=== PATIENT | female | born 1960 | race Caucasian/White ===

== ENCOUNTER 2023-03-13 05:59 | Day surgery (SDC) | payer OTHER, SELFPAY ==
[2023-03-13] VITALS (39 sets, daily range): BP systolic 98–162; BP diastolic 60–97; PULSE 51–72; RESP 12–16; TEMP 36.1–36.8; O2SAT 91–100; BMI 25.2
[2023-03-13] MEDS: LACTATED RINGERS 1000 ML 1,000 ML 100 ML IV (06:45)
[2023-03-13] MEDS: OXYCODONE (CR) 10 MG TAB.ER.12H PO (06:45)
[2023-03-13] MEDS: ACETAMINOPHEN 500 MG TABLET 1000 MG PO ×2 (06:45→17:55)
[2023-03-13] MEDS: SODIUM CHLORIDE 0.9 % (FLUSH) 10 ML SYRINGE IVF (06:45)
[2023-03-13] MEDS: fentaNYL 100 MCG/2 ML inj IVP (07:12)
[2023-03-13] MEDS: MIDAZOLAM HCL 1 MG/ML inj IVP (07:12)
--- NOTE | 2023-03-13 07:12 | SUR.PREOP ---
TIME?OUT:?0711 PT/RN/MDA?VERIFICATION?OF?SURGICAL?SITE,?PROCEDURE,?AND?CONSENT OBTAINED?PRIOR?TO?INVASIVE?PROCEDURE.
--- NOTE | 2023-03-13 07:43 | W.PM.H&PU ---
History & Physical Update History & Physical Update H&P Reviewed and patient assessed: No changes noted
[2023-03-13] MEDS: CEFAZOLIN 2 GM in 0.9 % SODIUM CHLORIDE Mini-bag 100 ML IVPB ×2 (07:47→17:56)
[2023-03-13] MEDS: TRANEXAMIC ACID 100 MG/ML INJ 1000 MG IV (07:48)
--- NOTE | 2023-03-13 08:03 | P.NB_ITS ---
Nerve Block Nerve Block Time Seen by Provider: 07:15 Date Seen: 03/13/23 Type of block requested by surgeon for post-operative analgesia: adductor canal Side: right Time out performed: Yes Verification of patient name: Yes Verification of date of : Yes Site marking: site marked Name of person performing procedure: Ricci Continuous monitoring Was continuous monitoring of O2 sat, B/P, traffic monitor specialist, recorded every 15 minutes?: Yes Procedure Checklist: sterile prep, needles and gloves Ultrasound guided. Images saved: Yes Medications given in 5ml increments after negative aspiration: Ropivicaine %: 0.5 mL: 20 Needle gauge: 20 Decadron (mg): 10 Precedex (mcg): 25 Patient tolerated procedure well: Yes Additional comments: Needle noted adjacent to nerve Block Charges Block Charge (with Pro Fee): Femoral Nerve Use of Ultrasound Machine for Block: Yes- US Guidance/pain block
--- NOTE | 2023-03-13 08:03 | P.NB_ITS ---
Nerve Block Nerve Block Time Seen by Provider: 07:15 Date Seen: 03/13/23 Type of block requested by surgeon for post-operative analgesia: geniculars Side: right Time out performed: Yes Verification of patient name: Yes Verification of date of : Yes Site marking: site marked Name of person performing procedure: Ricci Continuous monitoring Was continuous monitoring of O2 sat, B/P, awake overnight monitor, recorded every 15 minutes?: Yes Procedure Checklist: sterile prep, needles and gloves Medications given in 5ml increments after negative aspiration: Ropivicaine %: 0.5 mL: 9 Needle gauge: 25 Patient tolerated procedure well: Yes Block Charges Block Charge (with Pro Fee): Genicular Nerve Block Use of Ultrasound Machine for Block: No
--- NOTE | 2023-03-13 08:04 | W.ANESCHARGE ---
Anesthesia Charges Start Date/Time Anesthesia Start Date: 03/13/23 Anesthesia Start Time: 07:30 Stop Date/Time Anesthesia Stop Date: 03/13/23 Anesthesia Stop Time: 10:19
--- NOTE | 2023-03-13 09:32 | P.ORPRC_ITS ---
Procedure Note Date of procedure: 03/13/23 Procedure: PREOPERATIVE DIAGNOSIS: 1. Right knee osteoarthritis, primary, severe POSTOPERATIVE DIAGNOSIS: 1. Right knee osteoarthritis, primary, severe PROCEDURE: 1. Right total knee arthroplasty - modifier 22 (40% added time and difficulty for this case due to extensive scar tissue from 2 previous large open procedures from the 1970s with 25 and 35 cm skin scars. Abundant Ethibond suture required removal that was in the surgical field from that repair. Increased adhesions warranted greater dissection, tissue mobilization, and time to achieve safe bone mobility for access for implant insertion. In addition, a stem was utilized on the femoral component with increased constraint for the RP design warranting greater tibial preparation than is typical.) SURGEON: Theo Beatty MD. SKULL CHOPPER: Kush PENALOZA - Of note, a skilled medical laboratory assistant was critical for this case to aid in patient positioning, tissue retraction, limb manipulation/positioning, and closure. ANESTHESIA: Spinal anesthetic IMPLANTS: DePuy J&J all cemented TKA - Attune PS femur size 7 with 50 mm stem, size 6 RP design tibia, 6 mm RP poly spacer, 35 mm patella TOURNIQUET: 110 minutes at 300 torr EBL: 50 ml COMPLICATIONS: None evident INDICATIONS: The patient is a pleasant 62-year-old female who has experienced severe right knee pain and difficulty bearing weight. Workup included x-rays which revealed severe osteoarthrosis in the knee. She has a significant history of multiple previous surgeries to this right knee dating back to the for profound ligament instability. This included a 25 cm scar over the lateral aspect of the knee and a 35 cm scar over the medial aspect of the knee. Given the deformity, the dysfunction, and the pain, as well as the failure of nonoperative management, recommendation was made for surgery. FINDINGS: Extensive scar tissue throughout the knee. Hemosiderin deposition throughout the synovial tissues and exposed articular surface/bony structures making everything appear with a brownish hue. Ethibond sutures aligned the previous retinacular repair. Rosa Isela were seen along the proximal medial tibia and proximal lateral tibia but did not block implant access and therefore did not warrant removal. Allografts were seen for apparent remote MCL, PCL, and ACL reconstructions. The femoral rosa isela were not encountered during our procedure. DESCRIPTION OF PROCEDURE: Following a thorough discussion of risks, benefits, and alternatives consent was obtained and the right knee was marked. The patient was brought to the operating room and placed supine on the operating table. Induction of anesthesia was undertaken. 1 g IV Ancef and 1 g tranexamic acid was administered within 1 hr of incision preoperatively. Proper time-out was performed identifying proper patient, site, procedure. The operative extremity was prepped and draped in the appropriate sterile fashion using ChloraPrep after the patient was positioned supine with all bony prominences well padded. A longitudinal, anterior, midline skin incision was made starting approximately 3cm proximal to the superior pole of the patella and advanced distal to the tibial tubercle. A median parapatellar arthrotomy was created. A medial subperiosteal sleeve was created with knife, castanon elevator and curved osteotome. The retropatellar fatpad was resected and the synovium in the suprapatellar pouch excised to visualize the anterior femoral cortex. Femoral preparation was performed via an intramedullary guide. Step drill allowed access into the femoral canal. The distal cutting guide was placed with 5? of valgus and 11 mm cut on the distal femur due to a 5-7 degree flexion contracture. Femur was sized using a anterior referencing guide in 3? of external rotation. This found have a best fit with the sizing noted above. The 4 in 1 cutting block was then placed, and the distal femur shaped accordingly. The box cut was then created along with preparation for the femoral stem. The trial implant inserted to confirm appropriate fit. We turned our attention to the proximal tibia. Extramedullary guide was utilized for cutting with the goal of being 90 degree cut from the mechanical axis of the tibia in the varus/valgus plane utilizing tibial crest as the primary alignment. Initially a 3 mm resection was performed from the medial tibial plateau. Ultimately, balancing was achieved in both flexion and extension in both varus and valgus. This did require osteophyte excision from the posterior femur, posterior tibia, mobilization of capsule from the posterior medial tibia, posterior medial and lateral femoral condyles, and even within the notch. Pie crusting of the MCL allograft was needed to allow the tibia to translate more anteriorly. The allograft had been secured in the far anterior proximal aspect of the MCL not in its typical anatomic location. This restricted anterior tibial translation until the pie crusting improve this. The knee was able to achieve full extension as well comfortably. The patella was initially measured and found have a thickness of 22 mm. It was resected back to approximately 14 mm. It was sized to be a best fit with as noted above. This was drilled, trial placed. All trials were placed and found to have an excellent stability and balance. At this stage, trial implants were removed, the knee was thoroughly irrigated with normal saline, and the cement was mixed. After irrigation, the knee was thoroughly dried, and cement placed, with the real tibial and femoral implants placed along with the patella. Trial poly spacer was placed and confirmed to have excellent range of motion and full extension, and the real poly spacer opened and inserted. All extra cement was removed, and a 3 min Betadine soak performed. Finally, a final irrigation round with normal saline was performed. Closure performed with 0 Vicryl and #0 Stratafix for the quad tendon/retinaculum. 2-0 Vicryl for the subcutaneous and 4-0 Stratafix for subcuticular closure. Dressings were applied and the patient was awoken from anesthesia after the tourniquet deflated and transferred the PACU in stable condition. A skilled medical laboratory assistant was critical for this case to aid in patient positioning, tissue retraction, bone exposure, limb manipulation/positioning, patient safety, and closure. Again, 40% added time and difficulty for this case due to extensive scar tissue from 2 previous large open procedures from the 1970s with 25 and 35 cm skin scars and associated deep scar tissue. Abundant Ethibond suture required removal that was in the surgical field from that repair. Increased adhesions warranted greater dissection, tissue mobilization, and time to achieve safe bone mobility for access for implant insertion. In addition, a stem was utilized on the femoral component with increased constraint for the RP design warranting greater tibial preparation than is typical. PLAN: 1. Weight bear as tolerated operative extremity. 2. 23 hr perioperative antibiotics. 3. Ice. 4. PT/OT consults for ambulation assistance/mobility education. 5. Social work consult for discharge planning. 6. DVT prophylaxis with at SCDs, Sly Hose, and aspirin twice daily.
--- NOTE | 2023-03-13 10:18 | W.ANESCHARGE ---
Anesthesia Charges Start Date/Time Anesthesia Start Date: 03/13/23 Anesthesia Start Time: 07:30 Stop Date/Time Anesthesia Stop Date: 03/13/23 Anesthesia Stop Time: 10:19
[2023-03-13] MEDS: fentaNYL 100 MCG/2 ML inj 50 MCG IVP ×3 (10:20→11:02)
--- NOTE | 2023-03-13 10:22 | CRLHL7_ITS ---
For Patients: As a result of the Cures Act, medical imaging exams and procedure reports are released immediately into your electronic medical record. You may view this report before your referring provider. If you have questions, please contact your health care provider. Indication: Postop Technique: Two views right knee Findings/Impression: Hardware from a right total knee arthroplasty is in satisfactory position. Bone alignment is normal. No sign of acute fracture. Postop changes are within normal limits. Dictated by Wan Jackson MD @ 03/13/2023 10:42:48 AM (Electronically Signed)
[2023-03-13] MEDS: HYDROmorphone 0.5 mg/0.5 ml inj IVP ×2 (10:40→11:03)
--- NOTE | 2023-03-13 11:39 | SUR.OPER ---
PATIENT QUESTIONS ANSWERED SATISFACTORILY PREOPERATIVELY.? PATIENT BROUGHT TO OR #2 PER CART AFTER ADMINISTRATION OF A BLOCK.? Patient positioned supine on OR #2 bed.? The perioperative?team supported arms bilaterally on arm boards.? Final approval of positioning by surgeon.?
[2023-03-13] MEDS: ONDANSETRON 2 MG/ML inj 4 MG IVP (13:20)
[2023-03-13] MEDS: PROCHLORPERAZINE 5 MG/ML VIAL IV (17:22)
[2023-03-13] MEDS: LACTATED RINGERS 1000 ML 1,000 ML 75 ML IV (18:05)
[2023-03-13] MEDS: SENNOSIDES 1 TAB TABLET 2 TAB PO (21:42)
[2023-03-13] MEDS: ASPIRIN 81 MG TABLET EC PO (21:42)
--- NOTE | 2023-03-13 22:46 | PC.NURSE ---
VSS, RA. Minimal pain- only wanting tylenol right now, cryo cuff on. Tried to encourage ibuprofen, declined. Nausea at beginning of shift, emesis x2, compazine given x1 w/ relief. Decreased appetite- bites of food. Needs encouragement w/ drinking. CMS intact on RLE. Dressing c/d/i. PIV in left FA- LR @ 75 cc/hr. Up to bathroom x2. Will continue to monitor, follow POC, and keep pt and family updated. Renetta Alvarez RN
[2023-03-14 00:30] VITALS: BP 110/59; PULSE 74; RESP 16; TEMP 36.7; O2SAT 98
[2023-03-14] MEDS: ACETAMINOPHEN 500 MG TABLET 1000 MG PO ×2 (00:32→06:18)
[2023-03-14] MEDS: CEFAZOLIN 2 GM in 0.9 % SODIUM CHLORIDE Mini-bag 100 ML IVPB (02:25)
[2023-03-14 03:00] VITALS: BP 96/50; PULSE 76; RESP 16; TEMP 37.3; O2SAT 97
[2023-03-14 06:00] VITALS: BP 101/69
--- NOTE | 2023-03-14 06:22 | PC.NURSE ---
SHIFT NOTE : Pt pleasant and cooperative, A&O. Afebrile, oxygen saturations >90% on RA. Denies SOB, CP and N/V. Scheduled Tylenol given for pain 06/12, denied need for PRN oxycodone. Up SBA with a walker, ambulates well, denies dizziness or lightheadedness.
[2023-03-14 06:39] LABS: Basophils Percent Auto 0.1 % (0.0-3.0); Hemoglobin* 11.4 gm/dL (12.0-16.0); Immature Granulocytes Pct Auto 0.2 %; Lymphocytes Percent Auto 9.6 % (20-44); Mean Corpuscular HGB Conc 33 gm/dL (32-36); Mean Corpuscular Hemoglobin 29 pg (26-34); Mean Corpuscular Volume 88 fL (80-100); Monocytes Percent Auto 9.5 % (0.0-11.0); Neutrophils Percent Auto 80.6 % (42.0-72.0); Platelet Count* 296 K/uL (140-440); RDW Coefficient of Variation % 14.3 % (11.5-15.5); White Blood Count* 13.27 K/uL (4.50-11.00)
[2023-03-14 06:42] LABS: Slide Review Reflex No
[2023-03-14 07:04] LABS: Sodium* 138 mmol/L (135-149)
[2023-03-14 07:07] LABS: Creatinine* 0.5 mg/dL (0.5-1.5); Est. Creatinine Clearance* 58.84; Estimated Glomerular Filt Rate 106 ml/min
[2023-03-14 07:08] LABS: Blood Urea Nitrogen* 10 mg/dL (7-30)
[2023-03-14 08:20] VITALS: BP 93/54; PULSE 71; RESP 16; TEMP 37.1; O2SAT 96
--- NOTE | 2023-03-14 08:57 | PM.ORPN ---
Subjective Subjective Date Seen: 03/14/23 Principal diagnosis: Status postop day 1 right total knee arthroplasty Interval history: Patient reports doing well. No acute events over night. No longer experiencing nausea. No pain. Still taking Tylenol p.r.n.. No oxycodone. Ice p.r.n. DVT prophylaxis: 81 mg aspirin by mouth twice daily, bilateral knee high Sly stockings, SCDs, walking. Denies fevers, chills, aches, N/V, CP, SOB/ALANIZ, or lightheadedness. No flatus to date. Stomach is rolling/gurgling. Ortho Exam Narrative Exam Narrative: -Patient appears comfortable; no apparent acute distress -Alert and oriented times 3 -Operative knee mildly swollen; soft tissues supple; no ecchymosis; no erythematous streaking Warmth appropriate -Surgical dressing clean, dry, intact; no drainage -Bilateral calfs soft; no significant swelling, edema, tenderness, erythema, discoloration, warmth, or palpable cords -2+ DP/PT pulses, intact dermatomes and myotomes distally (5/5 strength) Const Vital Signs, click to edit/add: Vital Signs - 24 hr 03/13/23 10:15 03/13/23 10:20 03/13/23 10:25 Temperature 96.9 F L Pulse Rate 60 53 L 53 L Pulse Rate [Left Pulse Oximeter] Respiratory Rate 12 12 15 Blood Pressure 112/60 110/68 104/68 Blood Pressure [Right Arm] Pulse Oximetry 91 96 95 Oxygen Delivery Method Room Air 03/13/23 10:30 03/13/23 10:35 03/13/23 10:40 Temperature Pulse Rate 51 L 56 L 60 Pulse Rate [Left Pulse Oximeter] Respiratory Rate 12 14 14 Blood Pressure 101/69 103/66 108/73 Blood Pressure [Right Arm] Pulse Oximetry 97 96 96 Oxygen Delivery Method 03/13/23 10:45 03/13/23 10:50 03/13/23 10:55 Temperature 97.3 F L Pulse Rate 60 56 L 59 L Pulse Rate [Left Pulse Oximeter] Respiratory Rate 12 14 14 Blood Pressure 106/66 105/70 108/75 Blood Pressure [Right Arm] Pulse Oximetry 94 97 99 Oxygen Delivery Method Room Air 03/13/23 11:00 03/13/23 11:05 03/13/23 11:10 Temperature Pulse Rate 60 68 67 Pulse Rate [Left Pulse Oximeter] Respiratory Rate 14 12 12 Blood Pressure 106/74 103/68 110/64 Blood Pressure [Right Arm] Pulse Oximetry 100 99 98 Oxygen Delivery Method 03/13/23 11:15 03/13/23 11:20 03/13/23 11:25 Temperature 97.8 F 97.0 F L Pulse Rate 65 61 58 L Pulse Rate [Left Pulse Oximeter] Respiratory Rate 14 14 16 Blood Pressure 115/70 115/68 120/70 Blood Pressure [Right Arm] Pulse Oximetry 98 99 100 Oxygen Delivery Method Room Air Room Air 03/13/23 11:45 03/13/23 12:00 03/13/23 12:15 Temperature Pulse Rate 66 61 66 Pulse Rate [Left Pulse Oximeter] Respiratory Rate 16 16 16 Blood Pressure 122/79 119/78 126/80 Blood Pressure [Right Arm] Pulse Oximetry 100 99 100 Oxygen Delivery Method Room Air Room Air Room Air 03/13/23 12:30 03/13/23 13:00 03/13/23 14:00 Temperature 97.6 F 98.1 F Pulse Rate 54 L 71 55 L Pulse Rate [Left Pulse Oximeter] Respiratory Rate 16 16 14 Blood Pressure 134/74 128/71 Blood Pressure [Right Arm] 125/70 Pulse Oximetry 99 98 Oxygen Delivery Method Room Air Room Air Room Air 03/13/23 14:15 03/13/23 14:30 03/13/23 14:45 Temperature 98.1 F 97.6 F 97.7 F Pulse Rate Pulse Rate [Left Pulse Oximeter] 56 L 60 61 Respiratory Rate 14 14 14 Blood Pressure Blood Pressure [Right Arm] 120/80 130/71 122/72 Pulse Oximetry 100 100 98 Oxygen Delivery Method Room Air Room Air Room Air 03/13/23 15:00 03/13/23 15:30 03/13/23 16:00 Temperature 98.1 F 98.1 F 98.0 F Pulse Rate Pulse Rate [Left Pulse Oximeter] 64 63 62 Respiratory Rate 14 14 14 Blood Pressure Blood Pressure [Right Arm] 121/72 114/68 120/71 Pulse Oximetry 99 98 98 Oxygen Delivery Method Room Air Room Air Room Air 03/13/23 16:55 03/13/23 17:00 03/13/23 18:00 Temperature 97.6 F 98.1 F 98.1 F Pulse Rate Pulse Rate [Left Pulse Oximeter] 72 62 63 Respiratory Rate 14 14 14 Blood Pressure Blood Pressure [Right Arm] 122/72 162/97 H 106/69 Pulse Oximetry 98 99 97 Oxygen Delivery Method Room Air Room Air Room Air 03/13/23 19:00 03/13/23 19:08 03/13/23 20:00 Temperature 98.1 F 98.2 F Pulse Rate Pulse Rate [Left Pulse Oximeter] 62 68 62 Respiratory Rate 16 14 16 Blood Pressure Blood Pressure [Right Arm] 109/62 106/69 116/65 Pulse Oximetry 97 Oxygen Delivery Method Room Air Room Air 03/13/23 23:00 03/14/23 00:30 03/14/23 03:00 Temperature 98.1 F 99.1 F Pulse Rate Pulse Rate [Left Pulse Oximeter] 74 76 Respiratory Rate 16 16 Blood Pressure Blood Pressure [Right Arm] 110/59 L 96/50 L Pulse Oximetry 98 98 97 Oxygen Delivery Method Room Air Room Air 03/14/23 06:00 03/14/23 08:20 03/14/23 08:20 Temperature 98.8 F Pulse Rate Pulse Rate [Left Pulse Oximeter] 71 Respiratory Rate 16 Blood Pressure Blood Pressure [Right Arm] 101/69 93/54 L Pulse Oximetry 96 96 Oxygen Delivery Method Room Air Assessment and Plan Assessment and plan (1) S/P total knee arthroplasty: Problem details: POD 1 right total knee arthroplasty - cemented (03/13/2023) Status: Acute (2) Acute postoperative anemia due to expected blood loss: Problem details: Hemoglobin 11.4, asymptomatic Status: Acute Plan - Complete 23 hour perioperative antibiotics. - PT/OT consult for education and assistance. - Social work consult for discharge planning - Prescribed analgesics as needed - DVT prophylaxis: 81 mg aspirin by mouth twice daily, bilateral knee high Sly Hose stockings and SCDs - Anticipation is for discharge to home with spouse today 03/14/2023 if the patient remains medically stable, pain is controlled, and they are safe with mobilization. I note her history of ischemic colitis. No flat this today, but she has abdominal motion/gurgling. She will report to us if having no flatus or BM.
[2023-03-14] MEDS: MULTIVITAMIN/MINERALS 1 TABLET 1 TAB PO (09:03)
[2023-03-14] MEDS: ASPIRIN 81 MG TABLET EC PO (09:03)
[2023-03-14] MEDS: FERROUS SULFATE 325 MG TABLET PO (09:03)
[2023-03-14] MEDS: SENNOSIDES 1 TAB TABLET 2 TAB PO (09:04)
== END 2023-03-14 11:14 | disposition home or self-care (01) ==
LOC: OR 13:40 → MEDSURG 17:19
PROVIDERS: PCP Family Medicine; Visit Provider Orthopaedic Surgery Sports Medicine
PROC: (CPT 27447; principal; 2023-03-13 07:30)
DX: M17.11 Unilateral primary osteoarthritis, right knee (principal); D62 Acute posthemorrhagic anemia; G89.18 Other acute postprocedural pain
CPT/HCPCS: 27447; 01402; 36415; 64447; 64454; 73560; 76942; 82565; 84132; 84295; 84520; 85025; 97110; 97116; 97162; 97165; 97530; 97535; A9153; A9270; C1776; J0690; J0780; J1100; J1170; J2250; J2405; J2704; J2795; J3010; J7120

== ENCOUNTER 2023-05-23 17:00 | Outpatient (RCR) | payer OTHER, SELFPAY | END 2023-07-30 10:09 | disposition home or self-care (01) | PROVIDERS: PCP Family Medicine; Visit Provider Orthopaedic Surgery Sports Medicine | DX: M17.11 Unilateral primary osteoarthritis, right knee (principal); Z96.651 Presence of right artificial knee joint; R53.1 Weakness; Z74.09 Other reduced mobility; M25.561 Pain in right knee; Z51.89 Encounter for other specified aftercare | CPT/HCPCS: 97110; 97112; 97140; 97161; 97164 ==

== ENCOUNTER 2023-08-15 16:43 | Inpatient (IN) | payer OTHER, SELFPAY ==
[2023-08-14] VITALS (34 sets, daily range): BP systolic 69–138; BP diastolic 43–78; PULSE 46–80; RESP 12–19; TEMP 36.1–37.1; O2SAT 92–100; BMI 25.5
[2023-08-14] MEDS: LACTATED RINGERS 1000 ML 1,000 ML 100 ML IV ×3 (06:30→12:55)
[2023-08-14] MEDS: SODIUM CHLORIDE 0.9 % (FLUSH) 10 ML SYRINGE IVF (06:30)
[2023-08-14] MEDS: ACETAMINOPHEN 500 MG TABLET 1000 MG PO ×3 (06:35→22:50)
--- NOTE | 2023-08-14 07:11 | W.PM.H&PU ---
History & Physical Update History & Physical Update H&P Reviewed and patient assessed: No changes noted
[2023-08-14] MEDS: MIDAZOLAM HCL 1 MG/ML inj IVP (07:12)
[2023-08-14] MEDS: fentaNYL 100 MCG/2 ML inj IVP (07:12)
[2023-08-14] MEDS: SCOPOLAMINE 1 MG/3 DAY PATCH 1 PATCH TRANSDERMA (07:12)
--- NOTE | 2023-08-14 07:15 | XR_ITS ---
Patient: KANDICE LARA Facility:?[facility] Patient ID:?[id number] Site Patient ID:?[id number] Site :?[id number] Study:?XRay-Hip Left 1V-08/14/2023 9:49:20 AM Ordering Physician:?DR. WHITLEY Final Report: Indication: Hip replacement surgery Technique: AP hip fluoroscopic image. Fluoroscopy time 64.5 seconds. Findings/Impression: Hardware from a left total hip arthroplasty is in satisfactory position. Dictated by Wan Jackson MD @ 08/14/2023 9:58:56 AM Signed by:?Wan Jackson MD @08/14/2023 9:58:56 AM (Electronic Signature)
--- NOTE | 2023-08-14 07:32 | SUR.PREOP ---
TIME?OUT:?711 PT/RN/MDA?VERIFICATION?OF?SURGICAL?SITE,?PROCEDURE,?AND?CONSENT OBTAINED?PRIOR?TO?INVASIVE?PROCEDURE.
[2023-08-14] MEDS: CEFAZOLIN 2 GM in 0.9 % SODIUM CHLORIDE Mini-bag 100 ML IVPB ×3 (07:43→22:51)
[2023-08-14] MEDS: TRANEXAMIC ACID 100 MG/ML INJ 1000 MG IV (07:44)
--- NOTE | 2023-08-14 07:59 | W.PM.NB ---
Nerve Block Nerve Block Time Seen by Provider: 07:15 Date Seen: 08/14/23 Type of block requested by surgeon for post-operative analgesia: AMAIRANI/LFCN Side: left Time out performed: Yes Verification of patient name: Yes Verification of date of : Yes Site marking: site marked Name of person performing procedure: Ricci Continuous monitoring Was continuous monitoring of O2 sat, B/P, surveillance monitor, recorded every 15 minutes?: Yes Procedure Checklist: sterile prep, needles and gloves Ultrasound guided. Images saved: Yes Medications given in 5ml increments after negative aspiration: Ropivicaine %: 0.5 mL: 30 Needle gauge: 20 Decadron (mg): 10 Precedex (mcg): 25 Patient tolerated procedure well: Yes Additional comments: Needle noted below psoas tendon needle noted adjacent to LFCN Block Charges Block Charge (with Pro Fee): Other Periph Nerve Block Use of Ultrasound Machine for Block: Yes- US Guidance/pain block
--- NOTE | 2023-08-14 08:00 | W.ANESCHARGE ---
Anesthesia Charges Start Date/Time Anesthesia Start Date: 08/14/23 Anesthesia Start Time: 07:20 Stop Date/Time Anesthesia Stop Date: 08/14/23 Anesthesia Stop Time: 10:15
--- NOTE | 2023-08-14 09:38 | PM.ORPRC ---
Procedure Note Date of procedure: 08/14/23 Procedure: PREOPERATIVE DIAGNOSIS: 1. Left hip osteoarthritis, severe, primary POSTOPERATIVE DIAGNOSIS: 1. Left hip osteoarthritis, severe, primary PROCEDURE: 1. Left total hip arthroplasty-anterior approach 2. 51520 - intraoperative fluoroscopy up to 1 hour. SURGEON: Theo Beatty MD. ADJUNCT PROFESSOR OF ENGLISH: Harmony Jackson PA-C; CA Watson - Of note, a skilled special education teaching assistant was critical for this case to aid in patient positioning, tissue retraction, limb manipulation/positioning, dislocation/relocation, patient safety, and closure. ANESTHESIA: Spinal anesthetic EBL: 750 mL IMPLANTS: DePuy J&J uncemented total hip [place] cup size 52, hole eliminator, +0 neutral liner Actis stem, high offset, size 7 +8 mm ceramic 36 mm head. COMPLICATIONS: None evident INDICATIONS: The patient is a pleasant 62-year-old female who has experienced severe left hip pain and difficulty bearing weight. Workup included x-rays which revealed severe osteoarthrosis in the hip. Given the deformity, the dysfunction, and the pain, as well as the failure of nonoperative management, recommendation was made for surgery. FINDINGS: Full-thickness chondral loss diffusely throughout the femoral head as well as around the acetabulum. Large osteophytes especially around the anterior and lateral acetabulum and femoral head/neck junction. Moderate effusion upon entering the joint. We encountered significant continuous oozing/bleeding from the acetabulum upon reaming. This was where a majority of the EBL came from. DESCRIPTION OF PROCEDURE: Following a thorough discussion of risks, benefits, and alternatives consent was obtained and the left hip was marked. The patient was brought to the operating room and placed supine on the operating table. Induction of anesthesia was undertaken. 1 g IV Ancef and 1 g tranexamic acid was administered within 1 hr of incision preoperatively. Proper time-out was performed identifying proper patient, site, procedure. The operative extremity was prepped and draped in the appropriate sterile fashion using ChloraPrep after the patient was positioned on the [place] table with head in neutral alignment and all bony prominences well padded. C-arm fluoroscopic imaging was utilized to confirm proper pelvis rotation and position, and to get true AP films of both the contralateral left, and the affected left hip. This is for comparison. A longitudinal incision was made starting approximately 1 cm distal to the ASIS, and 3-4 cm lateral. The incision was extended distally aiming toward the lateral border the patella. Sharp incision through skin and bovie cautery through the subcutaneous tissue allowed identification of the TFL fascia. This was sharply divided, and the fascia bluntly released from the muscle fibers as we dissected medial. Upon coming to the medial border, we were able to retract the TFL laterally, and penetrated the deeper fascia and identify the crossing circumflex vessels. These were ligated/cauterized. The rectus was elevated from the capsule, and retractors placed laterally and medially along the femoral neck to help with visualization of the capsule. We then performed an inverted T capsulotomy. The capsule was tagged for later repair. Retractors were placed inside the capsule. The femoral neck was visualized after releasing medially down to the lesser trochanter, along the saddle laterally, and up onto the acetabulum. The femoral neck cut was made in line with our preoperative templating. The head was removed in a single piece, and sized. We turned our attention to acetabular preparation. Initially, the labrum was resected from around the perimeter, the pulvinar was excised, allowing us to visualize the false wall. We started the reaming with a 43 mm reamer. This was medialized down to the true wall. We then enlarged our reamers sequentially up to one size less than the selected cup size. We trialed at the same size and found it to have an excellent fit. The selected cup was then opened, inserted, and impacted in line with the goal of 40-45? of abduction, and 20-25? of anteversion. This was confirmed on C-arm fluoroscopic imaging to be in the appropriate/goal position. Once the cup was placed we placed a hole eliminator and a liner consistent with preop planning. In addition, anterior and lateral osteophytes were resected with a combination of osteotome and rongeur. Attention was turned to the femoral preparation. The limb was extended, externally rotated, and adducted. The posteromedial capsule was released, as retractors were placed allowing excellent access to the proximal femur. Initially a spreader box operator was followed by canal finder followed by various broaches. We broached sequentially up to size noted above, found it to have excellent rotational control, and trialing various heads and necks, revealed that appropriate neck offset, and the above noted head size provided the greatest stability, and nondenominational of length, and offset. C-arm fluoroscopic imaging confirmed position of the stem, as well as leg lengths, which were compared with the pre procedure all fluoroscopic images. Trial implants were removed, the real femoral stem inserted, as was the ceramic head. After reducing, the leg was placed through range of motion and stability was confirmed anterior, posterior, and lateral. A 3 min Betadine soak was then performed, and thorough irrigation with normal saline followed. Closure of the capsule was performed with #1 PDS. Bleeding was confirmed to be controlled at this stage, and the TFL fascia was closed with #0 strata fix. Subcutaneous, and subcuticular closure was performed with 2-0 Vicryl and 4-0 Monocryl, respectively. Dressings were applied, and the patient was awoken from anesthesia and transferred the PACU in stable condition. A skilled special education teaching assistant was critical for this case to aid in patient positioning, tissue retraction, proximal femur exposure, limb manipulation/positioning, dislocation/relocation, patient safety, and closure. PLAN: 1. Weight bear as tolerated operative extremity. 2. 23 hr perioperative antibiotics. 3. Ice. 4. PT/OT consults for ambulation assistance/mobility education. 5. Social work consult for discharge planning. 6. DVT prophylaxis with at SCDs, Sly Hose, and Xarelto x5 days followed by aspirin for a total of 1 month..
--- NOTE | 2023-08-14 10:03 | W.ANESCHARGE ---
Anesthesia Charges Start Date/Time Anesthesia Start Date: 08/14/23 Anesthesia Start Time: 07:20 Stop Date/Time Anesthesia Stop Date: 08/14/23 Anesthesia Stop Time: 10:15
--- NOTE | 2023-08-14 10:13 | XR_ITS ---
Patient: KANDICE LARA Facility:?[facility] Patient ID:?[id number] Site Patient ID:?[id number]. Site :?[id number] Study:?XRay-Hip Left 2V-08/14/2023 10:36:25 AM Ordering Physician:?DR. WHITLEY Final Report: Indication: Coccyx pain, fall x1 year Technique: AP hip centered pelvis and lateral view left hip Findings/Impression: Hardware from a left total hip arthroplasty is in satisfactory position. Bone alignment is normal. No sign of acute fracture. Postop changes are within normal limits. Dictated by Wan Jackson MD @ 08/14/2023 11:06:52 AM Signed by:?Wan Jackson MD @08/14/2023 11:06:52 AM (Electronic Signature)
[2023-08-14] MEDS: PHENYLEPHRINE 100 MCG/ML SYRINGE IVP (10:43)
[2023-08-14] MEDS: fentaNYL 100 MCG/2 ML inj 50 MCG IVP (10:46)
--- NOTE | 2023-08-14 11:50 | SUR.PHASEI ---
patient met discharge criteria per anesthesia
[2023-08-14] MEDS: ACETAMINOPHEN 325 MG TABLET PO (12:32)
[2023-08-14] MEDS: LACTATED RINGERS 1000 ML 1,000 ML 35 ML IV (12:55)
--- NOTE | 2023-08-14 13:23 | SUR.PHASEII ---
Pt returned to [facility] with soft BP's, see charting. pt reported dizziness with pressures. pt laid flat, 3rd bag of fluids running. denies nausea, tolerated toast. scope patch behind left ear. 750cc EBL in surgery. Dr. Beatty consulted and agreed for patient to be admitted to med/surg. Report given to BESS Lassiter on med surg at 1315.
[2023-08-14] MEDS: hydrOXYzine pamoate 25 MG CAPSULE PO ×3 (15:00→22:51)
--- NOTE | 2023-08-14 16:57 | P.IMCN_ITS ---
Date of Consult Consult date: 08/14/23 Requesting Physician: Orthopedics Primary Care Provider: Adriana Hayes MD Consult Narrative Reason for consult: Medical management of comorbidities Narrative: Pattie Guzman is a 62 year old female who presented to the hospital today for an elective L EUSEBIA. There were no surgical or anesthetic complications noted during procedure, although EBL estimated at 750mL. Postoperatively, she has had symptomatic hypotension with activity. Her blood pressure is low at baseline. She has no chest pain or palpitations and no other concerns for the hospitalist team; she is very happy to not be nauseated postoperatively. Gayle doesn't tolerate narcotics well, at this time feels that her pain is adequately controlled with APAP + Hydroxyzine. Patient's H&P reviewed, PCP is Dr. Hayes. Past medical history significant for: ischemic colitis, multiple orthopedic procedures, OA History of blood clots: No Postoperative plan: Home with family Review of Systems Status of ROS: Reports: 10 or more systems reviewed and unremarkable except as noted in History and below PFSH PFS Medical History (Updated 04/23/23 @ 14:28 by Jenny Zhao) Ischemic colitis ?K55.9 - Vascular disorder of intestine, unspecified (ICD-10) Ascending aorta dilation ?I77.810 - Thoracic aortic ectasia (ICD-10) Surgical History (Updated 08/14/23 @ 17:05 by Monica Patel MD) History of left hip replacement ?Z96.642 - Presence of left artificial hip joint (ICD-10) S/P total knee arthroplasty (03/13/23) ?Z96.659 - Presence of unspecified artificial knee joint (ICD-10) History of breast surgery ?Z98.890 - Other specified postprocedural states (ICD-10) Hx of tonsillectomy ?Z90.89 - Acquired absence of other organs (ICD-10) Tubal ligation status ?Z98.51 - Tubal ligation status (ICD-10) H/O right knee surgery ?Z98.890 - Other specified postprocedural states (ICD-10) History of bunionectomy ?Z98.890 - Other specified postprocedural states (ICD-10) Family History (Updated 02/01/23 @ 09:50 by Esther Roberts ~ [facility], [employer]) Father DVT (deep venous thrombosis) Social History Narrative: -Serafin Smoking Status: Never smoker Do you use any of these nicotine containing products: None Second hand tobacco smoke exposure: No How often do you have a drink containing alcohol: never How often do you have six or more drinks on one occasion: Never AUDIT-C Alcohol total score: 0 Non-prescribed substance use: denies use Caffeine: Yes (3c/day) Are you using contraception or practicing any form of control: No Meds Home Medications and Allergies Home Medications Medication Instructions Recorded Confirmed Type glucosamine-chondroitin 500 mg-400 1 cap PO TID 03/11/23 08/14/23 History mg capsule multivitamin 1 tab PO DAILY 03/11/23 08/14/23 History turmeric 400 mg capsule mg PO 07/04/23 07/04/23 History Allergies Allergy/AdvReac Type Severity Reaction Status Date / Time Penicillins Allergy Rash Verified 08/14/23 06:22 Sulfa (Sulfonamide Allergy Rash Verified 08/14/23 06:22 Antibiotics) Exam Narrative: Exam Narrative: GEN: Alert and oriented, sitting comfortably in bed HEENT: EOMIs bilaterally, no scleral icterus CV: RRR, No concerning murmurs R: LCTA bilaterally without concerning wheezing, air movement is adequate Ext: wearing Sly Hose bilaterally Skin: No concerning skin lesions or rashes on exposed skin Neuro: No focal deficits Psych: Appropriate Const: Vital Signs, click to edit/add: Vital Signs - 24 hr 08/14/23 06:30 08/14/23 07:12 08/14/23 10:10 Temperature 98.7 F 97 F L Pulse Rate 80 74 68 Respiratory Rate 16 16 19 Blood Pressure 124/71 138/78 80/49 L Pulse Oximetry 98 99 99 Oxygen Delivery Me thod Room Air Nasal Cannula Room Air Oxygen Flow Rate 2 08/14/23 10:15 08/14/23 10:20 08/14/23 10:25 Temperature 97 F L 97 F L 97 F L Pulse Rate 59 L 49 L 50 L Respiratory Rate 14 14 19 Blood Pressure 69/43 L 105/69 88/50 L Pulse Oximetry 99 99 97 Oxygen Delivery Me thod Room Air Room Air Oxygen Flow Rate 08/14/23 10:30 08/14/23 10:35 08/14/23 10:40 Temperature 97 F L 97 F L 97 F L Pulse Rate 47 L 48 L 46 L Respiratory Rate 15 14 14 Blood Pressure 73/57 L 78/45 L 81/44 L Pulse Oximetry 95 100 93 Oxygen Delivery Me thod Room Air Room Air Room Air Oxygen Flow Rate 08/14/23 10:45 08/14/23 10:50 08/14/23 10:55 Temperature 97 F L 97 F L 97 F L Pulse Rate 49 L 49 L 50 L Respiratory Rate 14 12 12 Blood Pressure 99/57 L 86/47 L 80/48 L Pulse Oximetry 95 93 92 Oxygen Delivery Me thod Room Air Room Air Room Air Oxygen Flow Rate 08/14/23 11:00 08/14/23 11:05 08/14/23 11:10 Temperature 97 F L 97 F L 97 F L Pulse Rate 52 L 50 L 49 L Respiratory Rate 16 12 12 Blood Pressure 85/48 L 82/48 L 86/52 L Pulse Oximetry 95 99 100 Oxygen Delivery Me thod Room Air Room Air Room Air Oxygen Flow Rate 08/14/23 11:15 08/14/23 11:20 08/14/23 11:25 Temperature 97 F L 97 F L 97 F L Pulse Rate 49 L 50 L 51 L Respiratory Rate 12 15 14 Blood Pressure 85/53 L 87/54 L 89/52 L Pulse Oximetry 100 100 100 Oxygen Delivery Me thod Room Air Room Air Room Air Oxygen Flow Rate 08/14/23 11:30 08/14/23 11:35 08/14/23 11:40 Temperature 97 F L 97.2 F L 97.2 F L Pulse Rate 56 L 53 L 55 L Respiratory Rate 18 12 16 Blood Pressure 95/54 L 86/56 L 96/55 L Pulse Oximetry 100 100 100 Oxygen Delivery Me thod Room Air Room Air Room Air Oxygen Flow Rate 08/14/23 11:45 08/14/23 12:00 08/14/23 12:15 Temperature 97.6 F Pulse Rate 52 L 58 L 53 L Respiratory Rate 16 16 16 Blood Pressure 92/60 95/55 L 98/55 L Pulse Oximetry 100 100 100 Oxygen Delivery Me thod Room Air Room Air Room Air Oxygen Flow Rate 08/14/23 12:30 08/14/23 13:00 08/14/23 13:30 Temperature Pulse Rate 55 L 54 L 58 L Respiratory Rate 16 16 16 Blood Pressure 93/53 L 98/62 101/56 L Pulse Oximetry 100 100 99 Oxygen Delivery Me thod Room Air Room Air Room Air Oxygen Flow Rate 08/14/23 14:00 08/14/23 14:15 08/14/23 14:50 Temperature 97.0 F L Pulse Rate 72 71 64 Respiratory Rate 15 Blood Pressure 111/63 102/63 100/58 L Pulse Oximetry 100 99 99 Oxygen Delivery Me thod Room Air Room Air Room Air Oxygen Flow Rate 08/14/23 15:05 Temperature Pulse Rate 68 Respiratory Rate Blood Pressure Pulse Oximetry 98 Oxygen Delivery Me thod Room Air Oxygen Flow Rate Assessment and Plan Assessment and plan (1) History of left hip replacement: Problem comment: - 08/14/23Rogerio Status: Acute Plan - pain management and prophylaxis per orthopedic surgery team - continue home medications for comorbidities - anticipate routine postoperative course
--- NOTE | 2023-08-14 18:50 | PC.NURSE ---
End of shift [id number]: Patient was hypotensive upon assessment. Not symptomatic while lying down, initially when PT tried to get her up she got dizzy and lightheaded. Her BP dropped into the 80/50's. Later this evening orthostatic BPs were completed and they were negative and she was no longer symptomatic. The patient reported mild pain in her L hip... scheduled tylenol was given. IV LR @ 75 hr. Tolerating PO intake with no N/V. Call light within reach. Dressing is CDI to L hip. Ice pack to L hip. Esha KELLOGG BSN
[2023-08-14] MEDS: SENNOSIDES 1 TAB TABLET 2 TAB PO (22:51)
[2023-08-15] VITALS (12 sets, daily range): BP systolic 83–108; BP diastolic 42–64; PULSE 58–85; RESP 16–18; TEMP 36.7–37.7; O2SAT 95–100
[2023-08-15] MEDS: hydrOXYzine pamoate 25 MG CAPSULE PO ×3 (04:41→19:47)
[2023-08-15] MEDS: LACTATED RINGERS 500 ML 500 ML IV (04:45)
[2023-08-15 05:03] LABS: Basophils Absolute Auto 0.01 K/uL (0.00-0.30); Basophils Percent Auto 0.1 % (0.0-3.0); Hematocrit 25.4 % (33.0-51.0); Hemoglobin* 8.4 gm/dL (12.0-16.0); Immature Granulocytes Abs Auto 0.01 K/uL (0.00-0.30); Immature Granulocytes Pct Auto 0.1 %; Lymphocytes Percent Auto 14.1 % (20-44); Mean Corpuscular HGB Conc 33 gm/dL (32-36); Mean Corpuscular Hemoglobin 29 pg (26-34); Mean Corpuscular Volume 86 fL (80-100); Neutrophils Percent Auto 77.7 % (42.0-72.0); Platelet Count* 250 K/uL (140-440); RDW Coefficient of Variation % 15.1 % (11.5-15.5); Red Blood Count 2.94 m/uL (4.00-5.20); White Blood Count* 10.34 K/uL (4.50-11.00)
[2023-08-15 05:07] LABS: Slide Review Reflex No
[2023-08-15 05:15] LABS: Potassium* 3.6 mmol/L (3.6-5.1); Sodium* 136 mmol/L (135-149)
[2023-08-15 05:18] LABS: Blood Urea Nitrogen* 17 mg/dL (7-30); Creatinine* 0.6 mg/dL (0.5-1.5); Est. Creatinine Clearance* 58.84; Estimated Glomerular Filt Rate 101 ml/min
[2023-08-15] MEDS: ACETAMINOPHEN 500 MG TABLET 1000 MG PO ×3 (06:53→19:47)
--- NOTE | 2023-08-15 07:25 | PM.ORPN ---
Subjective Subjective Date Seen: 08/15/23 Principal diagnosis: Status postop day 1, left total hip arthroplasty - anterior approach Interval history: Patient reports doing okay. Acute events overnight include syncopal episode, with as reported by nurse, approximate 15 seconds of no verbal response to cues from patient. Patient reports that she could hear what was happening, but could not respond. No rapid response was called. She recovered uneventfully. She has gotten up to move 3 times this morning, to those times she did okay, but when returning to chair, staff noticed decreased blood pressures. Pain managed with scheduled and PRN medications, ice. She prefers not to take oral narcotics due to nausea. DVT prophylaxis: 81 mg aspirin by mouth twice daily, bilateral knee high Sly stockings, SCDs, walking. Denies fevers, chills, aches, N/V, CP, SOB/ALANIZ. She is not lightheaded or dizzy when sitting. Reports that she frequently gives blood due to being O negative; she last gave blood in June when her hemoglobin was 11.4; asymptomatic after giving this blood. Of note, she states that her father has had numerous DVTs in the past. She is unaware if they are provoked or unprovoked. She has not had any testing for factor 5 Leiden. She herself has had many surgeries in the past including more recent total knee arthroplasty on the right without any issues such as blood clot. Ortho Exam Narrative Exam Narrative: -Patient appears comfortable in recliner; no apparent acute distress. She is not receiving 1 unit of PRBC -Alert and oriented times 3 -Operative hip mildly swollen; soft tissues supple; no obvious erythema. No ecchymosis. No obvious hematoma. Warmth appropriate. -Surgical dressing clean, dry, intact; no obvious drainage, no erythematous streaking peripheral to the bandage -Bilateral calves soft and supple; no significant swelling, edema, tenderness, erythema, discoloration, warmth, or palpable cords -2+ DP/PT pulses, intact dermatomes and myotomes distally (5/5 strength). Numbness about the lateral femoral cutaneous nerve distribution. Const Vital Signs, click to edit/add: Vital Signs - 24 hr 08/14/23 10:10 08/14/23 10:15 08/14/23 10:20 Temperature 97 F L 97 F L 97 F L Pulse Rate 68 59 L 49 L Pulse Rate [Left Pulse Oximeter] Pulse Rate [orthostatic lying] Pulse Rate [orthostatic sitting Pulse Oximeter] Pulse Rate [orthostatic standing] Respiratory Rate 19 14 14 Blood Pressure 80/49 L 69/43 L 105/69 Blood Pressure [Right Arm] Blood Pressure [orthostatic lying] Blood Pressure [orthostatic sitting] Blood Pressure [orthostatic standing] Pulse Oximetry 99 99 99 Oxygen Delivery Method Room Air Room Air Room Air 08/14/23 10:25 08/14/23 10:30 08/14/23 10:35 Temperature 97 F L 97 F L 97 F L Pulse Rate 50 L 47 L 48 L Pulse Rate [Left Pulse Oximeter] Pulse Rate [orthostatic lying] Pulse Rate [orthostatic sitting Pulse Oximeter] Pulse Rate [orthostatic standing] Respiratory Rate 19 15 14 Blood Pressure 88/50 L 73/57 L 78/45 L Blood Pressure [Right Arm] Blood Pressure [orthostatic lying] Blood Pressure [orthostatic sitting] Blood Pressure [orthostatic standing] Pulse Oximetry 97 95 100 Oxygen Delivery Method Room Air Room Air 08/14/23 10:40 08/14/23 10:45 08/14/23 10:50 Temperature 97 F L 97 F L 97 F L Pulse Rate 46 L 49 L 49 L Pulse Rate [Left Pulse Oximeter] Pulse Rate [orthostatic lying] Pulse Rate [orthostatic sitting Pulse Oximeter] Pulse Rate [orthostatic standing] Respiratory Rate 14 14 12 Blood Pressure 81/44 L 99/57 L 86/47 L Blood Pressure [Right Arm] Blood Pressure [orthostatic lying] Blood Pressure [orthostatic sitting] Blood Pressure [orthostatic standing] Pulse Oximetry 93 95 93 Oxygen Delivery Method Room Air Room Air Room Air 08/14/23 10:55 08/14/23 11:00 08/14/23 11:05 Temperature 97 F L 97 F L 97 F L Pulse Rate 50 L 52 L 50 L Pulse Rate [Left Pulse Oximeter] Pulse Rate [orthostatic lying] Pulse Rate [orthostatic sitting Pulse Oximeter] Pulse Rate [orthostatic standing] Respiratory Rate 12 16 12 Blood Pressure 80/48 L 85/48 L 82/48 L Blood Pressure [Right Arm] Blood Pressure [orthostatic lying] Blood Pressure [orthostatic sitting] Blood Pressure [orthostatic standing] Pulse Oximetry 92 95 99 Oxygen Delivery Method Room Air Room Air Room Air 08/14/23 11:10 08/14/23 11:15 08/14/23 11:20 Temperature 97 F L 97 F L 97 F L Pulse Rate 49 L 49 L 50 L Pulse Rate [Left Pulse Oximeter] Pulse Rate [orthostatic lying] Pulse Rate [orthostatic sitting Pulse Oximeter] Pulse Rate [orthostatic standing] Respiratory Rate 12 12 15 Blood Pressure 86/52 L 85/53 L 87/54 L Blood Pressure [Right Arm] Blood Pressure [orthostatic lying] Blood Pressure [orthostatic sitting] Blood Pressure [orthostatic standing] Pulse Oximetry 100 100 100 Oxygen Delivery Method Room Air Room Air Room Air 08/14/23 11:25 08/14/23 11:30 08/14/23 11:35 Temperature 97 F L 97 F L 97.2 F L Pulse Rate 51 L 56 L 53 L Pulse Rate [Left Pulse Oximeter] Pulse Rate [orthostatic lying] Pulse Rate [orthostatic sitting Pulse Oximeter] Pulse Rate [orthostatic standing] Respiratory Rate 14 18 12 Blood Pressure 89/52 L 95/54 L 86/56 L Blood Pressure [Right Arm] Blood Pressure [orthostatic lying] Blood Pressure [orthostatic sitting] Blood Pressure [orthostatic standing] Pulse Oximetry 100 100 100 Oxygen Delivery Method Room Air Room Air Room Air 08/14/23 11:40 08/14/23 11:45 08/14/23 12:00 Temperature 97.2 F L 97.6 F Pulse Rate 55 L 52 L 58 L Pulse Rate [Left Pulse Oximeter] Pulse Rate [orthostatic lying] Pulse Rate [orthostatic sitting Pulse Oximeter] Pulse Rate [orthostatic standing] Respiratory Rate 16 16 16 Blood Pressure 96/55 L 92/60 95/55 L Blood Pressure [Right Arm] Blood Pressure [orthostatic lying] Blood Pressure [orthostatic sitting] Blood Pressure [orthostatic standing] Pulse Oximetry 100 100 100 Oxygen Delivery Method Room Air Room Air Room Air 08/14/23 12:15 08/14/23 12:30 08/14/23 13:00 Temperature Pulse Rate 53 L 55 L 54 L Pulse Rate [Left Pulse Oximeter] Pulse Rate [orthostatic lying] Pulse Rate [orthostatic sitting Pulse Oximeter] Pulse Rate [orthostatic standing] Respiratory Rate 16 16 16 Blood Pressure 98/55 L 93/53 L 98/62 Blood Pressure [Right Arm] Blood Pressure [orthostatic lying] Blood Pressure [orthostatic sitting] Blood Pressure [orthostatic standing] Pulse Oximetry 100 100 100 Oxygen Delivery Method Room Air Room Air Room Air 08/14/23 13:30 08/14/23 14:00 08/14/23 14:15 Temperature 97.0 F L Pulse Rate 58 L 72 71 Pulse Rate [Left Pulse Oximeter] Pulse Rate [orthostatic lying] Pulse Rate [orthostatic sitting Pulse Oximeter] Pulse Rate [orthostatic standing] Respiratory Rate 16 15 Blood Pressure 101/56 L 111/63 102/63 Blood Pressure [Right Arm] Blood Pressure [orthostatic lying] Blood Pressure [orthostatic sitting] Blood Pressure [orthostatic standing] Pulse Oximetry 99 100 99 Oxygen Delivery Method Room Air Room Air Room Air 08/14/23 14:50 08/14/23 15:05 08/14/23 16:00 Temperature 97.9 F Pulse Rate 64 68 65 Pulse Rate [Left Pulse Oximeter] Pulse Rate [orthostatic lying] Pulse Rate [orthostatic sitting Pulse Oximeter] Pulse Rate [orthostatic standing] Respiratory Rate 16 Blood Pressure 100/58 L 98/53 L Blood Pressure [Right Arm] Blood Pressure [orthostatic lying] Blood Pressure [orthostatic sitting] Blood Pressure [orthostatic standing] Pulse Oximetry 99 98 100 Oxygen Delivery Method Room Air Room Air Room Air 08/14/23 17:00 08/14/23 17:00 08/14/23 23:00 Temperature 98.2 F Pulse Rate Pulse Rate [Left Pulse Oximeter] 74 Pulse Rate [orthostatic lying] 64 Pulse Rate [orthostatic sitting Pulse Oximeter] 78 Pulse Rate [orthostatic standing] 76 Respiratory Rate 18 Blood Pressure 93/55 L Blood Pressure [Right Arm] 87/45 L Blood Pressure [orthostatic lying] 93/58 L Blood Pressure [orthostatic sitting] 93/77 Blood Pressure [orthostatic standing] 93/60 Pulse Oximetry 93 Oxygen Delivery Method Room Air 08/15/23 03:00 Temperature 98.2 F Pulse Rate Pulse Rate [Left Pulse Oximeter] 59 L Pulse Rate [orthostatic lying] Pulse Rate [orthostatic sitting Pulse Oximeter] Pulse Rate [orthostatic standing] Respiratory Rate 16 Blood Pressure Blood Pressure [Right Arm] 95/53 L Blood Pressure [orthostatic lying] Blood Pressure [orthostatic sitting] Blood Pressure [orthostatic standing] Pulse Oximetry 95 Oxygen Delivery Method Room Air Assessment and Plan Assessment and plan (1) History of left hip replacement: Problem details: - 08/14/23, Rogerio Status: Acute (2) Postoperative anemia due to acute blood loss: Problem details: Hgb 8.4 (08/15/23) - since she is symptomatic, now receiving 1 unit of PRBC Status: Acute Plan - Complete 23 hour perioperative antibiotics. - PT/OT consult for education and assistance - this has not yet started due to patient being hypotensive - Social work consult for discharge planning - Prescribed analgesics as needed - DVT prophylaxis: 81 mg aspirin by mouth twice daily, bilateral knee high Sly Hose stockings and SCDs - Anticipation is for discharge to home, possibly today with spouse if the patient remains medically stable, pain is controlled, and they are safe with mobilization. At this point, we will see how she does with the blood transfusion and with therapies.
--- NOTE | 2023-08-15 07:44 | PC.NURSE ---
End of shift [id number]: Pain to left hip well managed with current regimen. Patient remains hypotensive throughout the shift. Dr. Patel updated, no new orders. Patient denying dizziness or lightheadedness until 0430, patient was attempting to ambulate to bathroom. Upon standing at bedside patient reported feeling dizzy, patient sat back down on bed. Nursing Services Manager requested assistance with transfer, upon standing with 2 staff patient reported feeling dizzy again. Assisted to sitting position, patient's gaze became fixed and did not respond to verbal command. Nursing Services Manager and Bri Wynne RN assisted patient to lying position and then to trendelenburg position. Patient verbally responding within 15 seconds stating she could hear us but was unable to speak. BP checked at that time 95/53. Call placed to [facility] [place] to update, new orders for 500cc bolus of LR and have AM labs drawn, notify provider if hgb <9. Lab draw with HGB 8.4, new order for 1 unit PRBC's and recheck hgb 1 hour post transfusion. Re-attempted transfer and ortho bp's completed at that time, negative orthostatic and patient tolerated transfer without reports of dizziness or lightheadedness. devan Santacruz updated upon arrival to unit.
[2023-08-15] MEDS: RIVAROXABAN 10 MG TABLET PO (09:23)
[2023-08-15] MEDS: SENNOSIDES 1 TAB TABLET 2 TAB PO ×2 (09:23→23:28)
[2023-08-15 12:15] LABS: Hemoglobin* 9.6 gm/dL (12.0-16.0)
--- NOTE | 2023-08-15 15:04 | PC.NURSE ---
Pt alert and oriented. Pt had complaints of pain ranging from 0-5; see EMAR for intervention. Pt has instances of dizziness and lightheadedness with standing/walking this AM. Pt hypotensive. Pt was given a unit of blood; Pt tolerated well. Pt up with 1-2 assist with walker and gait belt. This afternoon Pt had no complaints of dizziness with transferring accompanied by nursing staff. Dressing dry and intact. Pt likely to discharge home tomorrow.?
--- NOTE | 2023-08-15 16:40 | P.IMPN_ITS ---
Progress Note: A&P Assessment and plan (1) History of left hip replacement: Problem details: - 08/14/23, Rogerio Status: Acute (2) Postoperative anemia due to acute blood loss: Problem details: Hgb 8.4 (08/15/23) improved to 9.6 status post 1 unit packed red blood cells Status: Acute (3) Postoperative hypotension: Status: Acute (4) Syncope: Problem details: Postop Status: Acute Plan 1. Recommend patient not be discharged today due to relative complication from postoperative condition 2. Patient agreeable 3. Continue to monitor orthostatic blood pressure and pulse and hemoglobin Time Spent With Patient Total time spent: 50 minutes Subjective Date Seen: 08/15/23 Interval history: Patient reports doing okay. Acute events overnight include syncopal episode, with as reported by nurse, approximate 15 seconds of no verbal response to cues from patient. Patient reports that she could hear what was happening, but could not respond. No rapid response was called. She recovered uneventfully. She has gotten up to move 3 times this morning, to those times she did okay, but when returning to chair, staff noticed decreased blood pressures. Pain managed with scheduled and PRN medications, ice. She prefers not to take oral narcotics due to nausea. DVT prophylaxis: 81 mg aspirin by mouth twice daily, bilateral knee high Sly stockings, SCDs, walking. Denies fevers, chills, aches, N/V, CP, SOB/ALANIZ. She is not lightheaded or dizzy when sitting. Reports that she frequently gives blood due to being O negative; she last gave blood in June when her hemoglobin was 11.4; asymptomatic after giving this blood. Of note, she states that her father has had numerous DVTs in the past. She is unaware if they are provoked or unprovoked. She has not had any testing for factor 5 Leiden. She herself has had many surgeries in the past including more recent total knee arthroplasty on the right without any issues such as blood clot. 62-year-old woman status post elective left total hip arthroplasty yesterday with the perioperative estimated blood loss of 750 mL. Soft blood pressures postoperatively lasting into today. Had a brief episode of orthostatic syncope this morning. Hemoglobin down to 8.4 this morning. 1 unit packed red blood cells transfused and hemoglobin improved to 9.6. Subjectively her sense of lightheadedness has improved, but she is still weak as of late afternoon. Denies nausea or vomiting. Denies abdominal pain. Denies focal motor neurologic deficits. Denies dyspnea or cough. Denies chest heaviness, pressure, tightness, or pain. Denies palpitations or chest fluttering. Exam Narrative: Exam Narrative: Appears comfortable and in no acute distress. Exam in her room. Alert, oriented to self, place, time, situation. Friendly, articulate, cooperative. Lungs clear to auscultation. Heart tones with regular rhythm. Abdomen is benign. Independent transfer, station, and gait. Const: Vital Signs, click to edit/add: Vital Signs - 24 hr 08/14/23 17:00 08/14/23 17:00 08/14/23 23:00 Temperature 98.2 F Pulse Rate Pulse Rate [Left P ulse Oximeter] 74 Pulse Rate [orthos tatic lying] 64 Pulse Rate [orthos tatic sitting Puls e Oximeter] 78 Pulse Rate [orthos tatic standing] 76 Respiratory Rate 18 Blood Pressure 93/55 L Blood Pressure [Ri ght Arm] 87/45 L Blood Pressure [or thostatic lying] 93/58 L Blood Pressure [or thostatic sitting] 93/77 Blood Pressure [or thostatic standing ] 93/60 Pulse Oximetry 93 Oxygen Delivery Me thod Room Air 08/15/23 03:00 08/15/23 05:26 08/15/23 07:54 Temperature 98.2 F 99.2 F Pulse Rate Pulse Rate [Left P ulse Oximeter] 59 L 84 Pulse Rate [orthos tatic lying] 58 L Pulse Rate [orthos tatic sitting Puls e Oximeter] 62 Pulse Rate [orthos tatic standing] 60 Respiratory Rate 16 18 Blood Pressure Blood Pressure [Ri ght Arm] 95/53 L 83/48 L Blood Pressure [or thostatic lying] 94/49 L Blood Pressure [or thostatic sitting] 87/42 L Blood Pressure [or thostatic standing ] 93/48 L Pulse Oximetry 95 100 Oxygen Delivery Me thod Room Air Room Air 08/15/23 08:11 08/15/23 08:32 08/15/23 09:17 Temperature 99.2 F 98.5 F 98.6 F Pulse Rate 84 76 85 Pulse Rate [Left P ulse Oximeter] Pulse Rate [orthos tatic lying] Pulse Rate [orthos tatic sitting Puls e Oximeter] Pulse Rate [orthos tatic standing] Respiratory Rate 18 18 18 Blood Pressure 83/48 L 91/47 L 84/47 L Blood Pressure [Ri ght Arm] Blood Pressure [or thostatic lying] Blood Pressure [or thostatic sitting] Blood Pressure [or thostatic standing ] Pulse Oximetry 100 99 100 Oxygen Delivery Me thod 08/15/23 11:01 08/15/23 11:03 08/15/23 11:42 Temperature 98.5 F 98.5 F 98.0 F Pulse Rate 75 67 Pulse Rate [Left P ulse Oximeter] 77 Pulse Rate [orthos tatic lying] Pulse Rate [orthos tatic sitting Puls e Oximeter] Pulse Rate [orthos tatic standing] Respiratory Rate 18 18 18 Blood Pressure 94/55 L 97/46 L Blood Pressure [Ri ght Arm] 94/55 L Blood Pressure [or thostatic lying] Blood Pressure [or thostatic sitting] Blood Pressure [or thostatic standing ] Pulse Oximetry 97 99 97 Oxygen Delivery Me od Room Air 08/15/23 11:42 Temperature Pulse Rate Pulse Rate [Left P ulse Oximeter] Pulse Rate [orthos tatic lying] 68 Pulse Rate [orthos tatic sitting Puls e Oximeter] 67 Pulse Rate [orthos tatic standing] 77 Respiratory Rate Blood Pressure Blood Pressure [Ri ght Arm] Blood Pressure [or thostatic lying] 100/64 Blood Pressure [or thostatic sitting] 97/46 L Blood Pressure [or thostatic standing ] 88/54 L Pulse Oximetry Oxygen Delivery Me thod Documenting provider has reviewed patient's vital signs: yes Labs Labs: Laboratory Results - last 24 hr 08/14/23 08/15/23 08/15/23 07:12 04:55 12:00 WBC 10.34 RBC 2.94 L Hgb 8.4 L 9.6 L Hct 25.4 L MCV 86 MCH 29 MCHC 33 RDW Coeff of Eleazar 15.1 Plt Count 250 Neut % (Auto) 77.7 H Lymph % (Auto) 14.1 L [place] % (Auto) 8.0 Eos % (Auto) 0.0 Baso % (Auto) 0.1 Neut # (Auto) 8.00 H Lymph # (Auto) 1.50 [place] # (Auto) 0.80 Eos # (Auto) 0.00 Baso # (Auto) 0.01 Abs Immat Gran (auto) 0.01 Imm/Tot Granulo (auto) 0.1 Sodium 136 Potassium 3.6 BUN 17 Creatinine 0.6 Estimated Creat Clear 58.84 Estimated GFR 101 Blood Type O Negative Antibody Screen NEGATIVE Crossmatch (AHG) See Detail
--- NOTE | 2023-08-15 23:02 | PC.NURSE ---
Shift Note: Pt moving well with assist x1, denies dizziness or lightheadedness with position change. Pain well controlled with Tylenol and Vistaril, Active ice in place. BP's continue to be soft, 90's/50's, VS otherwise WNL. Pt did have one elevated temp of 99.8 temporally, she states she is comfortable. Small BM this evening and pt continues to sip fluids and adequate urine output. Surgical dressing C,D,&I.
[2023-08-16 00:52] VITALS: PULSE 77
[2023-08-16] MEDS: ACETAMINOPHEN 500 MG TABLET 1000 MG PO ×2 (00:58→07:03)
[2023-08-16] MEDS: hydrOXYzine pamoate 25 MG CAPSULE PO ×3 (00:59→10:12)
[2023-08-16 04:32] VITALS: BP 110/58; PULSE 71; RESP 16; TEMP 37.1; O2SAT 95
[2023-08-16 06:27] LABS: Lactate* 0.7 mmol/L (0.5-1.9)
[2023-08-16 06:39] LABS: Hematocrit 29.4 % (33.0-51.0); Hemoglobin* 9.5 gm/dL (12.0-16.0); Mean Corpuscular HGB Conc 32 gm/dL (32-36); Mean Corpuscular Hemoglobin 28 pg (26-34); Mean Corpuscular Volume 88 fL (80-100); Platelet Count* 205 K/uL (140-440); Red Blood Count 3.35 m/uL (4.00-5.20); White Blood Count* 9.19 K/uL (4.50-11.00)
[2023-08-16 06:42] LABS: Slide Review Reflex No
[2023-08-16 06:59] LABS: Chloride* 108 mmol/L (96-114); Potassium* 3.7 mmol/L (3.6-5.1); Sodium* 140 mmol/L (135-149)
--- NOTE | 2023-08-16 06:59 | PC.NURSE ---
End of shift [id number]: A&O pleasant and cooperative. BP remained stable throughout shift. Pt denies lightheaded/dizziness. Pt reports feeling stronger today. Up with SBA walker and gait belt. Hip pain managed by Tylenol and Vistaril. Dressing to hip c/d/i. CMS intact. Tolerating diet. Encouraged fluid intake.
[2023-08-16 07:00] VITALS: BP 104/51; PULSE 76; PULSE 85; RESP 16; TEMP 37.4; O2SAT 96
[2023-08-16 07:02] LABS: Anion Gap 1 mEq/L (7-15); Blood Urea Nitrogen* 12 mg/dL (7-30); Calcium* 8.4 mg/dL (8.4-10.6); Carbon Dioxide* 31 mmol/L (20-32); Creatinine* 0.6 mg/dL (0.5-1.5); Est. Creatinine Clearance* 58.09; Estimated Glomerular Filt Rate 101 ml/min; Glucose* 103 mg/dL (60-115)
[2023-08-16] MEDS: RIVAROXABAN 10 MG TABLET PO (08:05)
[2023-08-16] MEDS: SENNOSIDES 1 TAB TABLET 2 TAB PO (08:05)
[2023-08-16 10:34] VITALS: BP 111/59; PULSE 77; RESP 16
--- NOTE | 2023-08-16 12:59 | PC.NURSE ---
Nursing discharge note: Pt is A&O and ambulates SBA with 2ww. BP soft this morning but pt has been asymptomatic. Slight fever this morning of 99.3 but resolved after PRN Tylenol admin 98.2. Pt c/o intermittent left hip pain with ambulation. She rates it 2/10 and reports it?s adequately resolved with scheduled Tylenol and PRN hydroxyzine- last given at 1010. Pt is voiding without issues. Continent of B&B with active bowel sounds. Pt had a BM today prior to leaving. PIV in left wrist SL and discontinued with catheter intact. TELE read sinus arryhthmia rate in the 70s-80s. Pt at bedside majority of the morning. Discharge education reviewed with both patient and her present who verbalized understanding and their questions were answered appropriately. Pt discharged via W/C accompanied by staff and her at 1245. ?
--- NOTE | 2023-08-16 14:29 | PM.DS1 ---
DS: Providers Provider Date Seen: 08/16/23 Date of admission: 08/15/23 16:43 Primary care physician: Adriana Hayes MD Admitting Clinician: Theo Beatty MD Consults: 08/14/23 14:29 Consult to Occupational Therapy [CONS] Routine Comment: Reason(s) for OT Consult:: ADLs Prior to Discharge Any Restrictions?:: No Restrictions Comment: Consult to Physical Therapy [CONS] Routine Comment: Ambulate in the [place] today Reason(s) for PT Consult:: Evaluate and Treat Any Restrictions?:: No Restrictions Comment: Nursing Activity Consult to Physician [CONS] Routine Comment: Consulting Provider: Hospitalists Has provider been notified: No Consult to Bread Dumper [CONS] Routine Comment: Reason for Consult:: Discharge Planning Needs Attending Physician on discharge: Theo Beatty MD Date of Discharge: 08/16/23 DS: Diagnosis Discharge Diagnosis (1) Postoperative hypotension: Status: Acute Problem details: No longer hypotensive on 08/16/2023 with systolic blood pressure of 111 and no orthostatic hypotension. (2) Postoperative anemia due to acute blood loss: Status: Acute Problem details: Hgb 8.4 (08/15/23) improved to 9.6 status post 1 unit packed red blood cells (3) Syncope: Status: Acute Problem details: Postop (4) History of left hip replacement: Status: Acute Problem details: - 08/14/23, Rogerio (5) S/P total knee arthroplasty: Status: Acute Problem details: right total knee arthroplasty - cemented (03/13/2023, Dr. Beatty) (6) Acute postoperative anemia due to expected blood loss: Status: Acute Problem details: Hemoglobin 11.4, asymptomatic DS: Summary Hospital Course Hospital Course: 63-year-old woman underwent an elective left total hip arthroplasty on 08/14/2023. Estimated blood loss intraoperatively 750 mL. Postop hemoglobin dropped down to 8.4. She was orthostatic with this. Had a near syncopal episode the evening of 08/14/2023. Received 1 unit of packed red blood cells subsequently in hemoglobin stabilized at 9.5 thereafter. Orthostatic hypotension resolved. No more near-syncope episodes. Status at Discharge Functional status at discharge: uses cane/walker Overall status at discharge: patient is not back to baseline Time Spent with Patient Time attestation: Total time spent providing and/or coordinating discharge services: Time spent: Greater than 30 minutes Exam Narrative: Exam Narrative: Appears comfortable and in no acute distress. Exam in her room. No longer orthostatic or near syncopal. Alert, oriented to self, place, time, situation. Friendly, articulate, cooperative. Lungs clear to auscultation. Heart tones with regular rhythm. Abdomen is benign. Independent transfer, station, and gait. Const: Vital Signs, click to edit/add: Vital Signs - 24 hr 08/15/23 15:00 08/15/23 15:00 08/15/23 19:00 Temperature 98.1 F 99.8 F H Pulse Rate Pulse Rate [Left P ulse Oximeter] 83 83 83 Respiratory Rate 18 18 18 Blood Pressure [Le ft Arm] Blood Pressure [Ri ght Arm] 103/54 L 95/51 L Pulse Oximetry 99 96 Oxygen Delivery Me thod Room Air Room Air 08/15/23 23:23 08/16/23 00:52 08/16/23 04:32 Temperature 99.1 F 98.7 F Pulse Rate 77 Pulse Rate [Left P ulse Oximeter] 77 71 Respiratory Rate 18 16 Blood Pressure [Le ft Arm] Blood Pressure [Ri ght Arm] 108/59 L 110/58 L Pulse Oximetry 96 95 Oxygen Delivery Me thod Room Air Room Air 08/16/23 07:00 08/16/23 07:00 08/16/23 07:00 Temperature 99.3 F Pulse Rate 76 Pulse Rate [Left P ulse Oximeter] 85 85 Respiratory Rate 16 16 Blood Pressure [Le ft Arm] Blood Pressure [Ri ght Arm] 104/51 L Pulse Oximetry 96 Oxygen Delivery Me thod Room Air 08/16/23 10:34 Temperature Pulse Rate Pulse Rate [Left P ulse Oximeter] 77 Respiratory Rate 16 Blood Pressure [Le ft Arm] 111/59 L Blood Pressure [Ri ght Arm] Pulse Oximetry Oxygen Delivery Me thod Documenting provider has reviewed patient's vital signs: yes DS: Data Data Completed and Pending Labs on day of discharge: Labs from last 24 hours 08/16/23 06:10 WBC 9.19 RBC 3.35 L Hgb 9.5 L Hct 29.4 L MCV 88 MCH 28 MCHC 32 Plt Count 205 Sodium 140 Potassium 3.7 Chloride 108 Carbon Dioxide 31 Anion Gap 1 L BUN 12 Creatinine 0.6 Estimated Creat Clear 58.09 Estimated GFR 101 Glucose 103 Lactate 0.7 Calcium 8.4 TSH 2.040 Discharge Plan Discharge Disposition: Home, Self-Care Date of Admission: 08/15/23 16:43 Attending Provider on Discharge: Theo Beatty Consulting Providers: Monica Patel; ,[place]; Anthony Mittal; Jose David Vital; Bri Palumbo; Diana Andino; Maribel Marin; Kervin Mo; Yael Onofre; Jhoan Carver; Harris Guzman; Flora Wise; Brayan Jeffrey; Miguel Klein; Yani Valentine; Kush Arechiga; Jose Kaur; Mike Rosario; Chase Yap; Pal Mcallister Primary Care Provider: Adriana Hayes Condition: Stable Anticipated Discharge Date/Time: 08/16/23 11:30 Discharge Medications: New sennosides-docusate sodium [Senna-S] 8.6-50 mg tablet 1 tab-cap PO BID PRN (Reason: constipation) Qty: 60 2RF Rx Instructions: 1-2 tabs by mouth twice daily as needed. Recommended to take while using narcotics. aspirin 81 mg tablet,delayed release (DR/EC) 81 mg PO BID Qty: 50 0RF Rx Instructions: Start this Aspirin AFTER the Xarelto 5 day course has been completed. Xarelto 10 mg tablet 10 mg PO DAILY Qty: 5 0RF Rx Instructions: Take for 5 days. Complete these 5 days prior to starting the baby aspirin. hydroxyzine pamoate 25 mg capsule 25 - 50 mg PO Q6H PRN (Reason: postoperative pain) Qty: 60 0RF Continued glucosamine-chondroitin 500-400 mg capsule 1 cap PO TID Rx Instructions: give with meal/snack multivitamin Tablet 1 tab PO DAILY Held turmeric 400 mg capsule PO Hold Instructions: Resume on 08/20/23. May resume after completing 5 days of xarelto (rivaroxaban) Discharge Orders: Discharge Order (Routine); Ordered 08/16/23 Ordered By: Kervin Mo Consulting provider completed their portion of the discharge: Yes Patient Education: Aspirin (By mouth), Hydroxyzine (By mouth), Rivaroxaban (By mouth), Senna (By mouth), Total Hip Replacement (DC) Activity Level: Activity as Tolerated, Weight Bearing as Tolerated, Use Cane and Use Walker Activity Detail: Wound: ? Do not remove original dressing; we will remove this at first postop visit in 1-2 weeks. Only remove dressing if integrity is in question. ? No immersing wound in water; showering okay; light scrub with your hand and body soap, rinse, dab dry ? Sutures are under the skin, will dissolve; allow surgical glue to come off naturally; do not scrub the wound or apply ointments/lotions ? Call our office with any redness that streaks, excessive drainage from the wound, or wound gapping. Ice/Elevate: ? Ice as needed for swelling and discomfort (ice pack) Motion/Exercise: ? Weight bear as tolerated operative extremity (walker/cane for ambulation assistance as needed) ? Per PT/OT. Pain Medications: ? Oral narcotic as prescribed. Wean as tolerated. Additional acetaminophen and ibuprofen as needed. FLORES socks: ? Wear for 1 month, remove for 1 hour 3 times per day ? These are frustrating to take on/off, but are important for blood clot prevention for 1 month after surgery Blood Clot Prevention (DVT): ? Medication: Xarelto 10 mg tab (once daily) x5 days. Thereafter, 81 mg aspirin by mouth twice daily (1 month) Driving: ? Do not drive while taking narcotic pain medication ? Anticipate 4-6 weeks no driving if operative leg is driving leg Dental: ? No elective dental work for 6 months post-op. If there is an urgent/emergent dental need, contact our office for an antibiotic prescription. Smoking/Alcohol: ? Do not smoke; do no drink alcohol especially when taking postoperative oral narcotic medication Seek Care from you Primary Care Provider if you experience the following issues in the postoperative phase and beyond: ? Bacterial infections such as: pneumonia, bacterial skin infection (cellulitis), UTI, high fever, chills unrelated to the operative body part - call your primary care physician urgently for treatment in hopes to protect your health and the metal implant. Referrals: ? PT, OT per patient preference - evaluate treat total knee arthroplasty protocol (gait training, ROM, ADLs) Vaccines: ? No vaccines until 4-6 weeks postop Follow up: ? PA-Harvinder visit in 1 week ? Ortho surgeon follow-up in 6 weeks; repeat radiographs three views operative knee If there are any acute concerns regarding your surgery, please call our orthopedic clinic ([phone]) Follow Up Appointments: Adriana Hayes MD [Primary Care Provider] - 08/23/23 11:20 am ([facility] for post-hospitalization follow-up, with pre-visit hemoglobin for post-op anemia recheck.) Jhoan Ramírez PA-C [Physician Business Account Leader] - 08/22/23 10:10 am ([facility] for follow-up.) Forms: [employer] Info Instructions
== END 2023-08-16 12:42 | disposition home or self-care (01) | DRG 470 ==
LOC: OR 16:44 → MEDSURG 16:44
PROVIDERS: Internal Medicine; Admitting Provider Orthopaedic Surgery Sports Medicine; PCP Family Medicine; Visit Provider Orthopaedic Surgery Sports Medicine
PROC: 0SRB03A Replacement of Left Hip Joint with Ceramic Synthetic Substitute, Uncemented, Open Approach (ICD-10-PCS; CPT 27130; principal; 2023-08-14 07:15)
DX: M16.12 Unilateral primary osteoarthritis, left hip (principal); D62 Acute posthemorrhagic anemia; G89.18 Other acute postprocedural pain; I95.81 Postprocedural hypotension; R55 Syncope and collapse
CPT/HCPCS: 01214; 36415; 36430; 64450; 73501; 76000; 76942; 80048; 82565; 83605; 84132; 84295; 84443; 84520; 85018; 85025; 85027; 86850; 86900; 86901; 86922; 97110; 97116; 97161; 97165; 97530; 97535; A9270; C1776; J0690; J1100; J2250; J2371; J2405; J2704; J2795; J3010; J7120; P9016

== ENCOUNTER 2023-09-19 16:45 | Outpatient (RCR) | payer OTHER, SELFPAY | END 2023-11-18 10:34 | disposition home or self-care (01) | PROVIDERS: PCP Family Medicine; Visit Provider Orthopaedic Surgery Sports Medicine | DX: M16.12 Unilateral primary osteoarthritis, left hip (principal); Z96.642 Presence of left artificial hip joint; Z51.89 Encounter for other specified aftercare | CPT/HCPCS: 97110; 97161; 97164 ==